=== PATIENT | female | born 1995 | race Caucasian/White ===

== ENCOUNTER 2018-04-09 22:52 | Emergency (ER) | payer OTHER ==
[2018-04-09] MEDS ORDERED: NS 1,000 ML IV ONE (23:29)
--- NOTE | 2018-04-09 23:34 | EDPHY ---
H & P Stated Complaint: Reaction to unknown substance. Time Seen by Provider: 04/09/18 23:18 HPI/ROS: HPI The patient presents with altered mental status for the last several hours which started slowly and has gotten progressively worse. She is here with friends and her mother. She was drinking alcohol today until about noon. Then used a combination of Adderall, possibly 1/2 pill, Xanax possibly 2/3 of a pill , possibly cocaine as well. Friends noticed that she begun to slur her words, was talking nonsensically, seemed very tired with a dry mouth. They tried to feed her food but she had trouble eating. Her hands began shaking bilaterally and they noticed that her fingers seemed stuck together. They brought her in.. REVIEW OF SYSTEMS Constitutional: No fever, no chills. Eyes: No discharge. ENT: No sore throat. Cardiovascular: No chest pain, no palpitations. Respiratory: No cough, no shortness of breath. Gastrointestinal: No abdominal pain, no vomiting. Genitourinary: No hematuria. Musculoskeletal: No back pain. Skin: No rashes. Neurological: No headache. PMHx: Healthy, does not take any prescription medications Soc Hx: Here with her friends and mother PHYSICAL General Appearance: Alert, no distress, sedate, arouses to voice, unable to answer any questions Eyes: Pupils equal and round with enlarged pupils ENT, Mouth: Mucous membranes dry Respiratory: There are no retractions, lungs are clear to auscultation Cardiovascular: Regular rate and rhythm Gastrointestinal: Abdomen is soft and non-tender, no masses, bowel sounds normal Neurological: Moves all extremities equally Skin: Warm and dry, no rashes Musculoskeletal: Neck is supple non tender Extremities: symmetrical, full range of motion Psychiatric: Sedate Source: Patient, Family Exam Limitations: Clinical condition - Personal History LMP (Females 10-55): 1-7 Days Ago Current Tetanus/Diphtheria Vaccine: Unsure Current Tetanus Diphtheria and Acellular Pertussis (TDAP): Unsure - Medical/Surgical History Hx Asthma: No Hx Chronic Respiratory Disease: No Hx Diabetes: No Hx Cardiac Disease: No Hx Renal Disease: No Hx Cirrhosis: No Hx Alcoholism: No Hx HIV/AIDS: No Hx Splenectomy or Spleen Trauma: No Other PMH: Denies - Social History Smoking Status: Never smoked Constitutional: Initial Vital Signs Temperature (C) 36.8 C 04/09/18 22:55 Heart Rate 144 H 04/09/18 22:55 Respiratory Rate 16 04/09/18 22:55 Blood Pressure 118/79 04/09/18 22:55 O2 Sat (%) 94 04/09/18 22:55 O2 Delivery Mode Room Air O2 (L/minute) 2 Allergies/Adverse Reactions: No Known Allergies Allergy (Unverified 04/09/18 23:00) Home Medications: Medication Instructions Recorded NK [No Known Home Meds] 04/09/18 Medical Decision Making Differential Diagnosis: 22-year-old female who is healthy brought in by her friends and mother for altered mental status in the setting of alcohol and drug use today. On arrival , patient is tachycardic, pupils are enlarged, she is sedate though rouses to voice. She is unable to answer questions appropriately. I suspect she may have taken a hallucinogen. Differential diagnosis includes polysubstance abuse, alcohol intoxication, hallucinogen use. In the emergency department, IV line was established and the patient was started on IV fluids. The patient's heart rate improved. She became more awake and alert. Labs were relatively unremarkable. She eventually was able to walk with a steady gait and was discharged home with her mother. - Data Points Laboratory Results: Laboratory Results 04/09/18 23:39 04/09/18 23:39 Medications Given: Discontinued Medications Sodium Chloride (Ns) 1,000 mls @ 0 mls/hr IV EDNOW ONE; Wide Open PRN Reason: Protocol Stop: 04/09/18 23:30 Last Admin: 04/09/18 23:44 Dose: 1,000 mls Departure - Departure Disposition: Home, Routine, Self-Care Clinical Impression: Altered mental status, Drug use Condition: Good Instructions: Polysubstance Abuse (ED) Additional Instructions: Please do not use any drugs that are not prescribed you. These can cause dangerous side effects. You should return to the emergency department if your worse in any way. Referrals: NONE *PRIMARY CARE P,. [Primary Care Provider] - As per Instructions
[2018-04-09 23:50] LABS: PLATELET COUNT 166 10^3/uL (150-400)
[2018-04-10 02:59] VITALS: BP 102/70
== END 2018-04-10 02:59 | disposition home or self-care (01) ==
DX: R41.82 Altered mental status, unspecified (principal); F19.90 Other psychoactive substance use, unspecified, uncomplicated; E86.9 Volume depletion, unspecified
CPT/HCPCS: 80305; G0480